=== PATIENT | male | born 1955 | race Caucasian/White ===

== ENCOUNTER 2016-04-24 09:02 | Inpatient (IN) | payer OTHER ==
[~2016-04-24] VITALS: Ht 177.8 cm; Wt 92.5 kg
[2016-04-30] VITALS (12 sets, daily range): BP systolic 104–133; BP diastolic 54–75; PULSE 57–79; TEMP 97.8–98.6
[2016-04-30 06:27] LABS: BASO % 0.5 % (0.0-2.0); EOS # 0.1 (0.0-0.7); EOS % 1.1 % (0-4.0); GRAN # 5.3 (1.4-6.5); GRAN % 61.1 % (42.2-75.2); HEMATOCRIT 43.8 % (42.0-52.0); HEMOGLOBIN 14.5 g/dl (13.5-18.0); LYMPH # 2.7 (1.2-3.4); LYMPH % 30.5 % (20.0-51.0); MEAN CELL VOLUME 91 fl (80.0-100.0); MEAN CORPUSCULAR HEMOGLOBIN 30 pg (27.0-31.0); MEAN CORPUSCULAR HGB CONC 33 g/dl (33.0-37.0); MEAN PLATELET VOLUME 9.4 fl (7.4-10.4); MONO # 0.6 (0.1-0.6); MONO % 6.6 % (1.7-9.3); PLATELET COUNT 211 K/mm3 (130-400); RED BLOOD COUNT 4.82 M/mm3 (4.20-5.60); WHITE BLOOD COUNT 8.8 K/mm3 (4.8-10.8)
[2016-04-30 06:34] LABS: INR 1.2 (0.8-3.0); PROTHROMBIN TIME 13.5 SECONDS (9.7-12.8)
[2016-04-30 06:35] LABS: CALCIUM 9.5 mg/dL (8.4-10.2); CREATININE, serum 0.97 mg/dL (0.66-1.25); POTASSIUM 4.4 mmol/L (3.4-5.0)
[2016-04-30 06:37] LABS: PARTIAL THROMBOPLASTIN TIME 33.7 SECONDS (26.0-37.0)
[2016-04-30] MEDS ORDERED: ELIQUIS 5MG PO (06:56)
[2016-04-30] MEDS ORDERED: TOPROL XL 50MG50 MG PO (06:56)
[2016-04-30] MEDS ORDERED: ZOCOR 10MG10 MG PO (06:57)
[2016-04-30] MEDS ORDERED: ULTRAM 50MG TAB50 MG PO (06:57)
[2016-04-30 14:28] LABS: HEMATOCRIT 36.7 % (42.0-52.0); HEMOGLOBIN 11.8 g/dl (13.5-18.0)
[2016-05-01 00:45] VITALS: BP 114/70; PULSE 70; TEMP 98.1
[2016-05-01 06:22] VITALS: BP 118/70; PULSE 64; TEMP 98
[2016-05-01 07:31] LABS: MEAN CELL VOLUME 92 fl (80.0-100.0); MEAN CORPUSCULAR HGB CONC 33 g/dl (33.0-37.0); MEAN PLATELET VOLUME 9.5 fl (7.4-10.4); PLATELET COUNT 170 K/mm3 (130-400); RED BLOOD COUNT 3.56 M/mm3 (4.20-5.60); REDCELL DISTRIBUTION WIDTH-CV 13.9 % (11.5-14.5); WHITE BLOOD COUNT 11.8 K/mm3 (4.8-10.8)
[2016-05-01 07:38] LABS: HEMATOCRIT 32.7 % (42.0-52.0); HEMOGLOBIN 10.8 g/dl (13.5-18.0); MEAN CORPUSCULAR HEMOGLOBIN 30 pg (27.0-31.0)
[2016-05-01 07:44] LABS: CALCIUM 8.8 mg/dL (8.4-10.2); CREATININE, serum 0.86 mg/dL (0.66-1.25); POTASSIUM 4.4 mmol/L (3.4-5.0)
[2016-05-01 09:54] VITALS: BP 126/67; PULSE 58; TEMP 98
[2016-05-01 13:34] VITALS: BP 111/62; PULSE 54; TEMP 97.6
[2016-05-01 16:51] VITALS: BP 116/67; PULSE 52; TEMP 98.5
[2016-05-01 22:00] VITALS: BP 103/54; PULSE 56; TEMP 98.5
[2016-05-02 02:34] VITALS: BP 101/58; PULSE 54; TEMP 98
[2016-05-02 06:26] VITALS: BP 104/69; PULSE 58; TEMP 98.4
[2016-05-02 09:35] VITALS: BP 115/62; PULSE 70; TEMP 98.1
[2016-05-02 13:56] VITALS: BP 112/65; PULSE 79; TEMP 98.3
[2016-05-02 18:24] VITALS: BP 158/80; PULSE 61; TEMP 98.9
[2016-05-02 22:17] VITALS: BP 100/56; PULSE 68; TEMP 98.3
[2016-05-03 05:57] VITALS: BP 145/76; PULSE 90; TEMP 98.6
[2016-05-03 09:25] VITALS: BP 99/77; PULSE 86; TEMP 98.4
[2016-05-03 13:50] VITALS: BP 106/73; PULSE 94; TEMP 99
== END 2016-05-03 15:34 | disposition home or self-care (01) | DRG 708 ==
LOC: INPTSU 04-30 05:35 → SURG 04-30 07:30
PROVIDERS: Urology
PROC: 0VT00ZZ Resection of Prostate, Open Approach (ICD-10-PCS; principal; 2016-04-30 07:30)
DX: C61 Malignant neoplasm of prostate (principal); F17.210 Nicotine dependence, cigarettes, uncomplicated
CPT/HCPCS: A9284; J0330; J0690; J1100; J1644; J1885; J2250; J2270; J2370; J2405; J2704; J2710; J3010; J7120